=== PATIENT | female | born 1985 | race Caucasian/White ===

== ENCOUNTER 2018-10-09 16:28 | Emergency (ER) | payer OTHER ==
[2018-10-09 16:51] VITALS: BP 141/91; PULSE 89; TEMP 98.3; BMI 27.6
--- NOTE | 2018-10-09 16:55 | PDOC ---
Rapid Medical Evaluation Chief Complaint: Pain, Acute Time Seen by Provider: 10/09/18 16:49 Medical Evaluation: Allergies Allergy/AdvReac Type Severity Reaction Status Date / Time No Known Allergies Allergy Verified 11/23/13 21:52 Vital Signs Temp Pulse Resp BP Pulse Ox 98.3 F 89 18 141/91 100 10/09/18 16:47 10/09/18 16:47 10/09/18 16:47 10/09/18 16:47 10/09/18 16:47 10/09/18 16:52 I have performed a brief in-person evaluation of this patient. The patient presents with a chief complaint of: no PMhx present with 2 days h/o worsening left pelvic pains. Denies N/V, vaginal bleeding. Denies urinary symptoms Pertinent physical exam findings: mild left pelvic/ LLQ pain w/o rebound or gaurding I have ordered the following: UA, HCG, UCx. pelvic U/S The patient will proceed to the ED for further evaluation. Discharge Disposition - Diagnosis Pelvic pain - Discharge Dispostion Condition at time of disposition: Stable - Referrals - Patient Instructions - Post Discharge Activity
[2018-10-09 17:43] LABS: HCG,QUALITATIVE URINE Negative
--- NOTE | 2018-10-09 18:36 | PDOC ---
History of Present Illness - General Chief Complaint: Pain, Acute Stated Complaint: LEFT LOWER STOMACH PAIN Time Seen by Provider: 10/09/18 16:49 History Source: Patient - History of Present Illness Timing/Duration: reports: constant Past History - Past Medical History Allergies/Adverse Reactions: Allergies Allergy/AdvReac Type Severity Reaction Status Date / Time No Known Allergies Allergy Verified 10/09/18 21:45 Home Medications: Ambulatory Orders Albuterol Sulfate Inhaler - [Ventolin HFA Inhaler -] 1 - 2 inh PO Q4H #1 inhaler 11/23/13 Oxycodone HCl/Acetaminophen [Percocet 5-325 mg Tablet] 1 - 2 tab PO Q4H PRN #20 tablet MDD 6 10/09/18 COPD: No Diabetes: No Disorders: No HTN: Yes Kidney Stones: No - Reproductive History Is Patient Now?: No Cervical CA: No Dysfunctional Uterine Bleeding: No Ectopic : No Endometrial CA: No Polycystic Ovaries: No Tubal Ligation: No - Immunization History Immunization Up to Date: Yes - Suicide/Smoking/Psychosocial Hx Smoking History: Never smoked Have you smoked in the past 12 months: No Information on smoking cessation initiated: No Hx Alcohol Use: No Drug/Substance Use Hx: No Review of Systems - Review of Systems Constitutional: No: Chills, Fever ABD/GI: Yes: Abdominal cramping. No: Constipated, Diarrhea, Difficulty Swallowing, Nausea, Vomiting, Tarry Stools : No: Burning, Dysuria, Discharge, Flank Pain, Hematuria *Physical Exam - Vital Signs Last Vital Signs Temp Pulse Resp BP Pulse Ox 98.3 F 89 18 141/91 100 10/09/18 16:47 10/09/18 16:47 10/09/18 16:47 10/09/18 16:47 10/09/18 16:47 - Physical Exam General Appearance: Yes: Appropriately Dressed. No: Apparent Distress HEENT: positive: Normal Voice Neck: positive: Supple Female Pelvic Exam: positive: normal external exam, normal adnexa. negative: CMT, discharge, adnexal tenderness Gastrointestinal/Abdominal: positive: Normal Bowel Sounds, Tender (poorly localized ttp to suprapubic are, NT over mcburneys), Soft. negative: Distended , Guarding, Rebound Musculoskeletal: negative: CVA Tenderness Integumentary: positive: Dry, Warm Neurologic: positive: Fully Oriented, Alert, Normal Mood/Affect ED Treatment Course - LABORATORY CBC & Chemistry Diagram: 10/09/18 18:44 10/09/18 18:44 - ADDITIONAL ORDERS Additional order review: Laboratory Results 10/09/18 17:30 Urine HCG, Qual Negative Medical Decision Making - Medical Decision Making 10/09/18 18:28 33 yo F, no pmhx, here w/ severe pelvic pain that started yesterday and waxes and wanes. LMP 2 weeks ago. No vaginal discharge, dysuria, hematuria, flank pain, nausea, vomiting, fever or chills. No changes to bowel movements. No h/o similar pain. No new sexual partner. No h/o cysts or fibroids See exam R/o torsion vs preg, less likely PID as nl pelvic exam, NT over [place], ? stoney -pain control -labs -ua -US 10/09/18 19:07 10/09/18 19:00 Pt signed out to JAMAAL Springer at this time *DC/Admit/Observation/Transfer Diagnosis at time of Disposition: Urolithiasis - Discharge Dispostion Disposition: HOME Condition at time of disposition: Stable - Prescriptions Prescriptions: Oxycodone HCl/Acetaminophen [Percocet 5-325 mg Tablet] 1 - 2 tab PO Q4H PRN #20 tablet MDD 6 PRN Reason: Pain - Referrals Referrals: Derek Bello MD [Staff Physician] - 2 Days Tess Carrillo MD [Primary Care Provider] - 2 Days - Patient Instructions Printed Discharge Instructions: DI for Kidney Stones Additional Instructions: Thank you for choosing [facility]. It was a pleasure taking care of you. You were found to have kidney stone on the left side For this, you were referred to the urology. You may take Tylenol 650 mg or Motrin 600 mg every 6 hours by mouth as needed for mild to moderate pain. Take Motrin with food. Do not take more than 4000 mg of Tylenol in 1 day. For severe pain, you may take Percocet. This medication contains Tylenol so if taking this, avoid taking excessive Tylenol as well. Do not take more than 4000 mg of Tylenol in 1 day. This medication can make you constipated for which you may take over the counter Senna tablets as needed. This medication can also make you drowsy so please be cautious with driving or performing heavy physical work. Return to the Emergency Department if your symptoms worsen or persist, you have fever, shortness of breath, chest pain, severe abdominal pain, vomiting, blood in urine or other concerning symptoms. - Post Discharge Activity
[2018-10-09 18:37] LABS: EPI CELLS 1.5 /HPF (0-5/HPF); URINE APPEARANCE CLEAR; URINE BACTERIA 1.9 /hpf (NEGATIVE); URINE BILIRUBIN NEGATIVE (NEGATIVE); URINE CASTS 1 /hpf (0-8); URINE COLOR YELLOW; URINE GLUCOSE (UA) NEGATIVE (NEGATIVE); URINE KETONE TRACE (NEGATIVE); URINE LEUK ESTERASE NEGATIVE (NEGATIVE); URINE NITRITE NEGATIVE (NEGATIVE); URINE PROTEIN 1+ (NEGATIVE); URINE RBC 596 /hpf (0-4); URINE WBC 2 /hpf (0-5)
[2018-10-09 19:06] LABS: BASO % 0.5 % (0-2.0); EOS % 1.9 % (0-4.5); HEMATOCRIT 40.9 % (32.4-45.2); HEMOGLOBIN 13.8 GM/dL (10.7-15.3); LYMPH % 38.2 % (8-40); MCH 29.4 pg (25.7-33.7); MCHC 33.7 g/dl (32.0-36.0); MEAN CELL VOLUME 87.1 fl (80-96); MEAN PLT VOLUME 11.2 fl (7.5-11.1); MONO % 10.3 % (3.8-10.2); NEUT % 49.1 % (42.8-82.8); PLATELET COUNT 207 K/MM3 (134-434); RDW 13.2 % (11.6-15.6); WHITE BLOOD COUNT 7.4 K/mm3 (4.0-10.0)
[2018-10-09 19:32] LABS: ALBUMIN 4.2 g/dl (3.4-5.0); ALK PHOS 84 U/L (45-117); ANION GAP 7 MMOL/L (8-16); BILIRUBIN,TOTAL 0.2 mg/dL (0.2-1); BLOOD UREA NITROGEN 13 mg/dL (7-18); CALCIUM 8.5 mg/dL (8.5-10.1); CHLORIDE 105 mmol/L (98-107); CO2 26 mmol/L (21-32); CREATININE 0.7 mg/dL (0.55-1.3); GLUCOSE,RANDOM 79 mg/dL (74-106); POTASSIUM 4.4 mmol/L (3.5-5.1); SGOT/AST 13 U/L (15-37); SGPT/ALT 28 U/L (13-61); SODIUM 138 mmol/L (136-145); TOT PROT 7.6 g/dl (6.4-8.2)
--- NOTE | 2018-10-09 20:37 | PDOC ---
*Physical Exam - Vital Signs Last Vital Signs Temp Pulse Resp BP Pulse Ox 98.3 F 89 18 141/91 100 10/09/18 16:47 10/09/18 16:47 10/09/18 16:47 10/09/18 16:47 10/09/18 16:47 ED Treatment Course - LABORATORY CBC & Chemistry Diagram: 10/09/18 18:44 10/09/18 18:44 - ADDITIONAL ORDERS Additional order review: Laboratory Results 10/09/18 10/09/18 18:44 17:30 Sodium 138 Potassium 4.4 Chloride 105 Carbon Dioxide 26 Anion Gap 7 L BUN 13 Creatinine 0.7 Creat Clearance w eGFR 95.23 Random Glucose 79 Calcium 8.5 Total Bilirubin 0.2 AST 13 L ALT 28 Alkaline Phosphatase 84 Total Protein 7.6 Albumin 4.2 Urine Color Yellow Urine Appearance Clear Urine pH 6.0 Ur Specific [place] 1.028 Urine Protein 1+ H Urine Glucose (UA) Negative Urine Ketones Trace H Urine Blood 3+ H Urine Nitrite Negative Urine Bilirubin Negative Urine Urobilinogen 1.0 Ur Leukocyte Esterase Negative Urine WBC (Auto) 2 Urine RBC (Auto) 596 Urine Casts (Auto) 1 U Epithel Cells (Auto) 1.5 Urine Bacteria (Auto) 1.9 Urine HCG, Qual Negative 10/09/18 18:44 RBC 4.70 MCV 87.1 MCHC 33.7 RDW 13.2 MPV 11.2 H Neutrophils % 49.1 Lymphocytes % 38.2 Monocytes % 10.3 H Eosinophils % 1.9 Basophils % 0.5 - RADIOLOGY Radiology Studies Ordered: Category Date Time Status ABDOMEN & PELVIS CT W/O CONTR [CT] Stat CT Scan 10/09/18 19:51 Taken Medical Decision Making - Medical Decision Making Patient signed out to me by JAMAAL Burnham Results of labs reviewed - noted with hematuria Patient assessed and mentions improvement in pain; LNMP was 2 weeks ago On PE, abdomen soft, ND, NT; no CVA tenderness Will get CT A/P to further r/o causes of hematuria 10/09/18 19:36 CT A/P shows 3.8 mm obstructing stone in L proximal ureter with mild L renal hydro Patient currently appears comfortable Will refer to urology Provided with urine strainer 10/09/18 21:29 *DC/Admit/Observation/Transfer Diagnosis at time of Disposition: Urolithiasis Qualifiers: Urinary calculus location: ureter Qualified Code(s): N20.1 - Calculus of ureter - Discharge Dispostion Disposition: HOME Condition at time of disposition: Stable Decision to Admit order: No - Prescriptions Prescriptions: Oxycodone HCl/Acetaminophen [Percocet 5-325 mg Tablet] 1 - 2 tab PO Q4H PRN #20 tablet MDD 6 PRN Reason: Pain - Referrals Referrals: Tess Carrillo MD [Primary Care Provider] - 2 Days Derek Bello MD [Staff Physician] - 2 Days - Patient Instructions Printed Discharge Instructions: DI for Kidney Stones Additional Instructions: Thank you for choosing [facility]. It was a pleasure taking care of you. You were found to have kidney stone on the left side For this, you were referred to the urology. You may take Tylenol 650 mg or Motrin 600 mg every 6 hours by mouth as needed for mild to moderate pain. Take Motrin with food. Do not take more than 4000 mg of Tylenol in 1 day. For severe pain, you may take Percocet. This medication contains Tylenol so if taking this, avoid taking excessive Tylenol as well. Do not take more than 4000 mg of Tylenol in 1 day. This medication can make you constipated for which you may take over the counter Senna tablets as needed. This medication can also make you drowsy so please be cautious with driving or performing heavy physical work. Return to the Emergency Department if your symptoms worsen or persist, you have fever, shortness of breath, chest pain, severe abdominal pain, vomiting, blood in urine or other concerning symptoms. - Post Discharge Activity
== END 2018-10-09 21:45 | disposition home or self-care (01) ==
LOC: JER 16:28
DX: N20.1 Calculus of ureter (principal); I10 Essential (primary) hypertension
CPT/HCPCS: 36415; 74176-TC; 76856-TC; 80053; 81003; 84703; 85025; 87086; 87491; 87591; 99284-25